=== PATIENT | male | born 1945 | race Caucasian/White ===

== ENCOUNTER 2018-04-17 13:36 | Day surgery (SDC) | payer MEDICARE, SELFPAY ==
[2018-04-12 09:00] VITALS: BP 132/83; PULSE 67; RESP 18; TEMP 36.3; O2SAT 95; BMI 41.4
[2018-04-12 09:33] LABS: Absolute Neutrophil Count 3.8 X10^3/uL (2.0-7.7); Basophil# 0.01 X10^3/uL; Basophil% 0.1 % (0-1); Eosinophil# 0.11 X10^3/uL; Eosinophils% 1.5 % (0-5); Hematocrit 48.3 % (40-54); Hemoglobin 16.5 g/dl (13.0-16.5); Lymphocyte % 34.4 % (19-41); Mean Corp Hgb Conc 34.2 g/gl (32-36); Mean Corpuscular Hgb 32.8 pg (27.0-32.0); Mean Platelet Vol. 10.1 fl (6.2-12.0); Monocyte# 0.77 X10^3/uL; Monocyte% 10.6 % (0-10); Neutrophil % 52.4 % (47-70); Platelet Count 200 K/mm3 (150-450); RBC Distribution Width CV 13.1 % (11.6-14.6); RBC Distribution Width SD 46.2 fl (35.1-43.9); Red Blood Count 5.03 M/mm3 (4.6-6.2); White Blood Count 7.3 K/mm3 (4.4-11.0)
[2018-04-12 09:34] LABS: POSITIVE COUNT NO; POSITIVE DIFFERENTIAL NO; POSITIVE MORPHOLOGY NO
[2018-04-12 10:08] LABS: Anion Gap 7 (5-15); BUN 21 mg/dL (7-18); BUN/Creat Ratio 17.6 RATIO (10-20); Calcium,Total 8.4 mg/dL (8.5-10.1); Chloride 104 mmol/L (98-107); Creatinine, Serum 1.19 mg/dL (0.70-1.30); EST Glomerular Filtration Rate 64 mL/min (>60); Est Glom Filt Rate - Afr Amer 77 mL/min (>60); Estimated Creatinine Clearance 55.08 ml/min; Glucose 115 mg/dL (74-106); Potassium 4.5 mmol/L (3.5-5.1); Sodium Level 140 mmol/L (136-145)
[2018-04-17] VITALS (8 sets, daily range): BP systolic 120–160; BP diastolic 73–89; PULSE 68–88; RESP 16–18; TEMP 36.1–36.7; O2SAT 93–96; BMI 41.4
[2018-04-17] MEDS: Cefazolin 2 GM in 0.9% Normal Saline 100 ML IV (15:24)
--- NOTE | 2018-04-17 15:31 | PCM.DC.URO ---
Discharge Diet: No Restrictions Discharge Activity: Return to Normal Activity, May Not Drive - for 2 days. Additional Activity Instructions:: f you have a catheter, remove on ___. If you have any problems after catheter is removed, call [phone] and ask for your doctor to be paged. Please be aware that pain medications may cause nausea. You should typically eat light foods as you take your pain medication. Pain medication may cause constipation, if this is a problem for you, please discuss with your doctor. Allergies/Adverse Reactions: Allergies morphine Allergy (Verified 04/12/18 08:48) Hives Medications to take at Discharge Cyclobenzaprine [Flexeril] 10 mg PO TID 11/16/15 Tamsulosin HCl [Flomax] 0.4 mg PO DAILY 11/16/15 Gabapentin [Neurontin] 100 mg PO DAILY 09/15/16 buPROPion tablets [Wellbutrin tablets] 150 mg PO DAILY 09/15/16 Aspirin 325 mg PO BID@0800,1700 #30 tablet 09/20/16 traMADol [Ultram] 50 mg PO DAILY 04/12/18 Primary Care Physician: Ruel Seaman MD [Primary Care Provider] - Test Results: Test results from this visit will be discussed in further detail at your follow-up appointment, if applicable. Please Follow Up With: Momo Glaser MD When: in 2 weeks, please call to make an appointment.
--- NOTE | 2018-04-17 15:52 | PCM.OPRPT ---
Report of Operation Date of Procedure: 04/17/18 Pre-Operative Diagnosis: Bladder tumor Post-Operative Diagnosis: Same Surgery/Procedure Performed:: Transurethral resection of bladder tumor Description of Surgical Findings:: 73-year-old male taken back to the operating room after smooth induction of anesthesia he was placed in dorsal lithotomy position. The penis testicles are prepped and draped in usual sterile fashion. I went into the bladder with a 21 Fijian rigid cyst cystourethroscope identified a tumor coming off the lateral wall of the bladder on the on the left patient's left side, the tumor was about 1 cm in size and papillary nature. We then switch over to the Olympus resectoscope using the loop I then resected the base of the tumor and this was a complete resection once white, then the tumor was handed off as specimen to the nurse the bladder was drained and then I instilled 40 cc of mitomycin-C mitomycin-C into the bladder. Patient anesthetic is currently being reversed plan to have him go to the PACU and then he will follow-up in the office in a few weeks to review the tissue report we can probably then plan for procedure for his prostate for BPH and obstruction. Type of Anesthesia:: General Specimen's removed: bladder tumor Drains: none - Admit VTE Documentation VTE Present on Admission: No VTE Mechan Device Prophylaxis: SCD's VTE Pharm Prophylaxis ordered?: No
--- NOTE | 2018-04-18 | BLB_PTH ---
PATIENT: EMMETT BROWNLEE LOC: [facility] – [place] U#:[id number] AGE/SX: 73/M ROOM: RE04/17/[address]: Dr. Momo Glaser MD : 1945 BED: DIS: 04/17/2018 SPEC #: [id number] RECD: 04/18/18 11:55 STATUS: ISIAH REGerri #: [id number] NIKKI: 04/18/18 00:[address]: Momo Glaser DEPT: SURGICAL PATHOLOGY RECD BY: Emiliano Reed ENTERED: 04/18/18 11:56 SP TYPE: TURB OTHR DR: Dr. Ruel Seaman MD Tissues: Urinary bladder, NOS Procedures: Surgery Specimen Level V HEADER OPERATION: Cysto, TUR bladder tumor, Olympus PRE-OP DIAGNOSIS: Bladder CA TISSUE SUBMITTED: Bladder CA MICROSCOPIC DIAGNOSIS Urinary bladder tumor, TUR: Minimal chronic inflammation. No evidence of malignancy. AM:teodora 04/19/18 COMMENT Detrusor muscle is not represented in the biopsy. MICROSCOPIC DESCRIPTION Slides are reviewed. GROSS DESCRIPTION Received in fixative is one container labeled with the patient's name and designated bladder carcinoma. The specimen consists of one irregular fragment of light kaye soft tissue that measures 0.3 x 0.2 x 0.1 cm. The specimen is totally submitted in one cassette. / SJ:rg 04/18/18 TC:3 CPT: 49726
== END 2018-04-17 18:06 | disposition home or self-care (01) ==
LOC: SDC 13:37 → AC 13:37
PROVIDERS: Anesthesiology; Family Provider Family Medicine; PCP Family Medicine; Visit Provider Urology
PROC: 0TBB8ZZ Excision of Bladder, Via Natural or Artificial Opening Endoscopic (ICD-10-PCS; CPT 52234; principal; 2018-04-17 15:45)
DX: C67.2 Malignant neoplasm of lateral wall of bladder (principal); N40.1 Benign prostatic hyperplasia with lower urinary tract symptoms; N13.8 Other obstructive and reflux uropathy; R35.1 Nocturia; E29.1 Testicular hypofunction; F32.9 Major depressive disorder, single episode, unspecified; Z79.82 Long term (current) use of aspirin; Z79.899 Other long term (current) drug therapy; Z87.891 Personal history of nicotine dependence
CPT/HCPCS: 52234; 80048; 85025; 88307; 93005; J7120; J2405; J3490; J9280

== ENCOUNTER → 2018-04-24 13:13 | Outpatient (CLI) | payer MEDICARE, SELFPAY | PROVIDERS: Family Provider Family Medicine; PCP Family Medicine; Visit Provider Nurse Practitioner Adult Health | DX: R31.9 Hematuria, unspecified (principal) | CPT/HCPCS: 87086; 87088 ==

== ENCOUNTER → 2019-02-26 14:31 | Outpatient (CLI) | payer MEDICARE, SELFPAY ==
[2019-02-26 15:04] LABS: Color, Urine Yellow (Yellow); Glucose, Dipstick Normal (Normal); Ketone-Dipstick Negative (Negative); Leukocyte Esterase-Dipstick Negative /ul (Negative); Nitrite-Dipstick Negative (Negative); Occult Blood-Urine 10 /ul (Negative); Protein-Dipstick Negative (Negative); Specific Gravity, Urine 1.025 (1.002-1.030); Urine Bilirubin Dipstick Negative (Negative); Urine Clarity Clear (Clear); Urine Urobilinogen 1 mg/dl (Normal)
[2019-02-26 15:06] LABS: Absolute Lymphocyte Count 3.13 X10^3/uL (0.83-4.51); Absolute Neutrophil Count 3.7 X10^3/uL (2.0-7.7); Basophil# 0.07 X10^3/uL; Basophil% 0.9 % (0-1); Eosinophil# 0.09 X10^3/uL; Eosinophils% 1.1 % (0-5); Hematocrit 51.2 % (40-54); Hemoglobin 17.5 g/dL (13.0-16.5); Lymphocyte # 3.13 X10^3/ul (4.0); Lymphocyte % 38.5 % (19-41); Mean Corp Hgb Conc 34.2 g/dL (32-36); Mean Corpuscular Hgb 32.7 pg (27.0-32.0); Mean Corpuscular Volume 95.7 fL (80-94); Mean Platelet Vol. 9.9 fl (6.2-12.0); Monocyte# 0.96 X10^3/uL; Monocyte% 11.8 % (0-10); NRBC Flagged by Analyzer 0 % (0-5); Neutrophil # 3.71 X10^3/uL (2.7-7.7); Neutrophil % 45.6 % (47-70); Platelet Count 246 K/mm3 (150-450); RBC Distribution Width CV 12.7 % (11.6-14.6); Red Blood Count 5.35 M/mm3 (4.6-6.2); White Blood Count 8.1 K/mm3 (4.4-11.0)
[2019-02-26 15:47] LABS: ALB/GLOB Ratio 0.8 RATIO (0.9-2.4); AST(SGOT) 40 U/L (15-37); Alanine Aminotransfer ALT/SGPT 63 U/L (16-61); Albumin, Serum 3.5 g/dL (3.2-5.0); Alkaline Phosphatase 79 U/L (45-117); Anion Gap 7 (5-15); BUN 20 mg/dL (7-18); BUN/Creat Ratio 16.9 RATIO (10-20); Chloride 103 mmol/L (98-107); Cholesterol 198 mg/dL (200); Creatinine, Serum 1.18 mg/dL (0.70-1.30); EST Glomerular Filtration Rate 65 mL/min (>60); Est Glom Filt Rate - Afr Amer 78 mL/min (>60); Globulin 4.6 g/dL (2.2-4.2); Glucose 102 mg/dL (74-106); High Density Lipoprotein 28 mg/dL; PSA,Total - Annual Screen 0.91 ng/mL (0.00-4.00); Potassium 4.2 mmol/L (3.5-5.1); Protein, Total 8.1 g/dL (6.4-8.2); Sodium Level 140 mmol/L (136-145); Triglycerides 494 mg/dL
== END ==
PROVIDERS: Family Provider Family Medicine; PCP Family Medicine; Referring Provider Family Medicine; Visit Provider Family Medicine
DX: Z00.00 Encounter for general adult medical examination without abnormal findings (principal); Z12.5 Encounter for screening for malignant neoplasm of prostate; E78.5 Hyperlipidemia, unspecified
CPT/HCPCS: 36415; 80053; 80061; 81002; 84153; 85025; G0103

== ENCOUNTER 2019-05-23 12:16 | Day surgery (SDC) | payer MEDICARE, SELFPAY ==
[2019-05-21 08:12] VITALS: BP 134/88; PULSE 64; RESP 18; TEMP 36.6; O2SAT 97; BMI 43.2
--- NOTE | 2019-05-21 08:33 | SDCEKG_ITS ---
Test Reason : Blood Pressure : / mmHG Vent. Rate : 063 BPM Atrial Rate : 063 BPM P-R Int : 144 ms QRS Dur : 088 ms QT Int : 354 ms P-R-T Axes : 020 -09 058 degrees QTc Int : 362 ms Normal sinus rhythm Normal ECG Confirmed by KAI SONG, SHEKHAR ([id number]), proposal editor JULISA MOTTA ([id number]) on 05/28/2019 9:45:47 A M Referred By: Momo Glaser Confirmed By:PAL QUINN MD
[2019-05-21 08:56] LABS: Hematocrit 49.2 % (40-54); Hemoglobin 16.8 g/dL (13.0-16.5); Mean Corp Hgb Conc 34.1 g/dL (32-36); Mean Corpuscular Hgb 32.6 pg (27.0-32.0); Mean Corpuscular Volume 95.3 fL (80-94); Platelet Count 202 K/mm3 (150-450); RBC Distribution Width CV 13.2 % (11.6-14.6); RBC Distribution Width SD 46.6 fl (35.1-43.9); Red Blood Count 5.16 M/mm3 (4.6-6.2)
[2019-05-21 09:19] LABS: Anion Gap 4 (5-15); BUN 24 mg/dL (7-18); Calcium,Total 8.7 mg/dL (8.5-10.1); Chloride 106 mmol/L (98-107); EST Glomerular Filtration Rate 63 mL/min (>60); Est Glom Filt Rate - Afr Amer 77 mL/min (>60); Estimated Creatinine Clearance 53.83 ml/min; Glucose 111 mg/dL (74-106); Potassium 4.6 mmol/L (3.5-5.1); Sodium Level 138 mmol/L (136-145)
[2019-05-23] VITALS (12 sets, daily range): BP systolic 121–154; BP diastolic 67–98; PULSE 64–81; RESP 16–18; TEMP 36.1–36.8; O2SAT 93–100; BMI 43.2
[2019-05-23] MEDS: Lactated Ringers 1,000 ML 100 ML IV ×2 (13:10→15:42)
--- NOTE | 2019-05-23 13:12 | DCINST_ITS ---
Discharge Diet: Light diet - advance as tolerated Discharge Activity: Return to Normal Activity Call your doctor if your incision/area has: Continuous Slow Oozing, Sudden Increased Bleeding, Increased Pain/ Swelling, Increased Redness, Foul Smelling Discharge, Swelling at the incision site Suture Line Care: Avoid Pulling/Pushing, Avoid Pinching/Bending Instructions: Transurethral Resection of the Prostate (TURP): Home Recovery Allergies/Adverse Reactions: Allergies morphine Allergy (Verified 05/23/19 12:48) Hives Medications to take at Discharge cycloBENZAPRine HCl [Flexeril] 10 mg PO TID PRN 11/16/15 traMADol [Ultram] 50 mg PO DAILY 04/12/18 Ciprofloxacin [Cipro] 500 mg PO BID #10 tab 05/23/19 The following prescriptions were given: Ciprofloxacin [Cipro] 500 mg PO BID #10 tab Prescription Printed Primary Care Physician: Ruel Seaman MD [Primary Care Provider] - Test Results: Test results from this visit will be discussed in further detail at your follow- up appointment, if applicable. Please Follow Up With: Momo Glaser MD When: in 2 weeks, please call to make an appointment.
[2019-05-23] MEDS: Cefazolin 2 GM in 0.9% Normal Saline 100 ML IV (13:23)
--- NOTE | 2019-05-23 14:10 | PROS_PTH ---
PATIENT: EMMETT BROWNLEE LOC: [facility] U#:[id number] AGE/SX: 74/M ROOM: RE05/23/[address]: Dr. Momo Glaser MD : 1945 BED: DIS: 05/24/2019 SPEC #: [id number] RECD: 05/23/19 15:16 STATUS: ISIAH REGerri #: [id number] NIKKI: 05/23/19 14:[address]: Momo Glaser DEPT: SURGICAL PATHOLOGY RECD BY: Nino Montero ENTERED: 05/26/19 09:29 SP TYPE: TURP OTHR DR: Dr. Ruel Seaman MD Tissues: Prostate, NOS Procedures: Surgery Specimen Level IV HEADER OPERATION: Cysto, TUR, prostate Olympus PRE-OP DIAGNOSIS: BPH with obstruction TISSUE SUBMITTED: Prostate chips MICROSCOPIC DIAGNOSIS Prostate chips, TUR: Benign prostatic hyperplasia, glandular and stromal type. Focal mild chronic inflammation. SJ:teodora 05/27/19 MICROSCOPIC DESCRIPTION Slides are reviewed. GROSS DESCRIPTION Received is one container labeled with the patient's name and designated prostate chips. The specimen consists of multiple irregular fragments of pink-kaye, rubbery, soft tissue that in aggregate weigh 4.5 gm and measure in aggregate 4 x 4 x 1 cm. The entire specimen is submitted in five cassettes. DILIA:teodora 05/26/19 TC:5 CPT: 89802
--- NOTE | 2019-05-23 14:28 | PCM.OPRPT ---
Report of Operation Date of Procedure: 05/23/19 Pre-Operative Diagnosis: BPH with obstruction Post-Operative Diagnosis: Same Surgery/Procedure Performed:: Transurethral resection of prostate Description of Surgical Findings:: 74-year-old male taken back to the operating room at the smooth induction of general anesthesia he was placed in dorsolithotomy position the penis and testicles are prepped and draped in usual sterile fashion I first went into the penis with a 19 Arabic rigid cystourethroscope to evaluate the anatomy he had a normal urethral channel normal pendulous urethra normal bulbar urethra sphincter was intact verumontanum was identified he had obstructive prostate tissue short length from the verumontanum to the bladder neck identified the right and left ureteral orifice I then switched over to the bipolar resectoscope and then a resection of the prostate resected the floor right lobe of the prostate the left low the prostate as I resected also remove the UroLift clips, removed all the clips did a complete resection had a nice wide open channel did a flow test had a great wide open flow, look back in sphincter was intact had nice tissue right to the verumontanum no resection past the verumontanum good sphincter control and at the end of the resection I did a flow test nice flow but a catheter into the bladder on three-way irrigation and the patient was taken back to PACU in good condition after anesthesia was reversed. Type of Anesthesia:: General Drains: 3 way roa - Admit VTE Documentation VTE Present on Admission: No VTE Mechan Device Prophylaxis: SCD's
[2019-05-23] MEDS: 0.9% Normal Saline 1,000 ML 75 ML IV (17:26)
[2019-05-23] MEDS: HYDROcodone Bitartrate/Apap 5/325 Tablet PO (17:37)
[2019-05-23] MEDS: oxyCODONE 5 MG Tablet PO (19:39)
[2019-05-23] MEDS: Ketorolac 30 MG/ML Syringe IV (20:01)
[2019-05-23] MEDS: Docusate Sodium 100 MG Capsule PO (22:45)
[2019-05-23] MEDS: Ciprofloxacin 500 MG Tablet PO (22:45)
[2019-05-24] MEDS: Ibuprofen 600 MG Tablet PO (01:01)
[2019-05-24] MEDS: oxyCODONE 5 MG Tablet PO (01:21)
[2019-05-24 02:30] VITALS: BP 119/80; PULSE 66; RESP 18; TEMP 36.8; O2SAT 97
[2019-05-24] MEDS: 0.9% Normal Saline 1,000 ML 75 ML IV (05:51)
[2019-05-24 08:05] VITALS: O2SAT 92
[2019-05-24 08:46] VITALS: BP 125/53; PULSE 67; RESP 16; TEMP 36.5; O2SAT 95
[2019-05-24] MEDS: Docusate Sodium 100 MG Capsule PO (08:54)
[2019-05-24] MEDS: Ciprofloxacin 500 MG Tablet PO (08:54)
[2019-05-24] MEDS: Pantoprazole Sodium 40 MG Tablet PO (08:55)
[2019-05-24] MEDS: traMADol 50 MG Tablet PO (08:56)
[2019-05-24 11:13] VITALS: BP 133/68; PULSE 73; RESP 16; TEMP 37.1; O2SAT 93
[2019-05-24 14:31] VITALS: BP 147/79; PULSE 75; RESP 16; TEMP 36.7; O2SAT 97
--- NOTE | 2019-05-24 14:50 | NURSING ---
dr garza notified that pt unable to void. order received to place roa and send pt home with roa. 18g roa placed. education on roa care and leg bag given to pt. pt stated that he understood how to care for rao. pt discharge home
[2019-05-24] MEDS: HYDROcodone Bitartrate/Apap 5/325 Tablet PO (14:56)
== END 2019-05-24 15:53 | disposition home or self-care (01) ==
LOC: SDC 12:17 → AC 12:18 → MS3 05-26 10:18
PROVIDERS: Anesthesiology; Family Provider Family Medicine; PCP Family Medicine; Referring Provider Urology; Visit Provider Urology
PROC: (CPT 52601; principal; 2019-05-23 14:00)
DX: N40.1 Benign prostatic hyperplasia with lower urinary tract symptoms (principal); N13.8 Other obstructive and reflux uropathy; R35.0 Frequency of micturition; R35.1 Nocturia; E29.1 Testicular hypofunction; E78.49 Other hyperlipidemia; Z87.891 Personal history of nicotine dependence
CPT/HCPCS: 00914; 52601; 80048; 85027; 88305; 93005; J7030; J7120; J2405

== ENCOUNTER → 2020-01-26 12:01 | Outpatient (CLI) | payer MEDICARE, SELFPAY ==
[2019-05-23 12:52] VITALS: BMI 43.2
[2020-01-26 12:48] LABS: Absolute Neutrophil Count 3.9 X10^3/uL (2.0-7.7); Basophil# 0.05 X10^3/uL; Basophil% 0.6 % (0-1); Color, Urine Yellow (Yellow); Eosinophil# 0.08 X10^3/uL; Glucose, Dipstick Normal (Normal); Hematocrit 49.9 % (40-54); Hemoglobin 16.8 g/dL (13.0-16.5); Ketone-Dipstick Negative (Negative); Leukocyte Esterase-Dipstick Negative /ul (Negative); Lymphocyte % 35.6 % (19-41); Mean Corp Hgb Conc 33.7 g/dL (32-36); Mean Corpuscular Hgb 33.1 pg (27.0-32.0); Mean Corpuscular Volume 98.2 fL (80-94); Mean Platelet Vol. 10.2 fl (6.2-12.0); Monocyte# 0.85 X10^3/uL; Monocyte% 10.8 % (0-10); NRBC Flagged by Analyzer 0 % (0-5); Neutrophil # 3.94 X10^3/uL (2.7-7.7); Neutrophil % 50.1 % (47-70); Nitrite-Dipstick Negative (Negative); Occult Blood-Urine 10 /ul (Negative); Platelet Count 228 K/mm3 (150-450); Protein-Dipstick Negative (Negative); RBC Distribution Width CV 12.7 % (11.6-14.6); RBC Distribution Width SD 45.9 fl (35.1-43.9); Red Blood Count 5.08 M/mm3 (4.6-6.2); Urine Bilirubin Dipstick Negative (Negative); Urine Clarity Sl. Cloudy (Clear); Urine Urobilinogen Normal (Normal); White Blood Count 7.9 K/mm3 (4.4-11.0)
== END ==
PROVIDERS: PCP Family Medicine; Referring Provider Family Medicine; Visit Provider Family Medicine
DX: Z00.00 Encounter for general adult medical examination without abnormal findings (principal); E78.5 Hyperlipidemia, unspecified; Z12.5 Encounter for screening for malignant neoplasm of prostate
CPT/HCPCS: 36415; 81002; 85025

== ENCOUNTER → 2020-02-02 10:32 | Outpatient (CLI) | payer MEDICARE, SELFPAY ==
[2019-05-23 12:52] VITALS: BMI 43.2
[2020-02-02 11:57] LABS: ALB/GLOB Ratio 0.8 RATIO (0.9-2.4); AST(SGOT) 35 U/L (15-37); Alanine Aminotransfer ALT/SGPT 49 U/L (16-61); Albumin, Serum 3.7 g/dL (3.2-5.0); Alkaline Phosphatase 74 U/L (45-117); Anion Gap 3 (5-15); BUN 24 mg/dL (7-18); Calcium,Total 9.1 mg/dL (8.5-10.1); Chloride 104 mmol/L (98-107); Cholesterol 178 mg/dL (200); EST Glomerular Filtration Rate 63 mL/min (>60); Est Glom Filt Rate - Afr Amer 76 mL/min (>60); Globulin 4.8 g/dL (2.2-4.2); Glucose 100 mg/dL (74-106); High Density Lipoprotein 33 mg/dL; Potassium 4.5 mmol/L (3.5-5.1); Protein, Total 8.5 g/dL (6.4-8.2); Sodium Level 139 mmol/L (136-145); Triglycerides 213 mg/dL; Very Low Density Lipoprotein 43 mg/dL (5-40)
== END ==
PROVIDERS: PCP Family Medicine; Visit Provider Family Medicine
DX: Z00.00 Encounter for general adult medical examination without abnormal findings (principal); E78.5 Hyperlipidemia, unspecified; Z12.5 Encounter for screening for malignant neoplasm of prostate
CPT/HCPCS: 80053; 80061

== ENCOUNTER 2020-09-20 15:00 | Outpatient (RCR) | payer MEDICARE, SELFPAY ==
[2019-05-23 12:52] VITALS: BMI 43.2
--- NOTE | 2020-09-14 16:05 | HP.PTEVAL ---
Patient's Visit Information EMMETT BROWNLEE is a 75 year old M referred to Physical Therapy by Dr. Ruel Seaman MD with a diagnosis of vertigo. Date of Evaluation: 09/14/20 Physical Therapist: Mehdi Licea DPT, OCS, CSCS - Visit Plan Frequency: 1-2x /Week Duration: 2-4 Weeks Plan: 1-2x/weeklya s needed for positional treatments for BPPV and return to function if needed. - Subjective Got vertigo 10 days ago out of nowhere as he woke up with it. Lying down is worst or rolling over and he spins bad. Lasts about 15 seconds. In between feels oK unless he gets up too quick or bends over. Once he is up, he is typically OK. Always feels a little nauseous but spinning only with head movement. Had this one time 10 years ago adn fixed quick. Gets ARAUJO or neck pain if it comes on. Avoids going out to barn and taking care of animals and riding tractor. Balance is effected when dizzyness is present. Sleeps OK unless he rolls. - Objective Walks well and trasnfers easily with good balance. Cervical AROM WFL adn without pain. - L hallpike davina. + R roll test treated with BBQ roll, then + R HD treated with Taz. Walked well out of therapy safe and I. - Balance Scores Functional Gait Assessment Score: 27 % Disability: 10.0000 - Goals Goal 1:: abolish dizzyness with bedning adn lying/rolling Goal Time Frame: 2-4 Weeks Goal 2:: Pt feel 100% back to normal with activit Goal Time Frame: 2-4 Weeks - Rehabilitation Potential Physical Therapy Diagnosis: BPPV Rehabilitation Potential: Fair - Anticipated Interventions Patient/Client Instruction: Educate patient on: Condition, Plan of Care For the Purpose of:: To increase tolerance to activity/condition/position Comment: positional For the Purpose of:: To increase tolerance to activity/condition/position Thank you for the opportunity to evaluate your patient. For Medicare and Medicare HMO plans, please review the plan of care and approve it. It will need to be FAXED BACK to us at [phone] for Medicare purposes. For Medicare only, by signing this I certify the plan of care. Please let me know if there are questions or concerns regarding this plan of care. Physician Signature: Date:
--- NOTE | 2020-12-01 10:07 | HP.PT.NRP ---
EMMETT BROWNLEE was seen in my office for initial evaluation on 09/14/20. The following Plan of Care was established for this patient: Initial Frequency: 1-2x /Week Initial Duration: 2-4 Weeks Patient/Client Instruction: Educate patient on: Condition, Plan of Care For the Purpose of:: To increase tolerance to activity/condition/position For the Purpose of:: To increase tolerance to activity/condition/position This patient was last seen in our office 09/20/20. Pertinent comments regarding their Physical therapy will appear below: Pt seen 3 visits of POC over 6 days. He neglected to schedule or attend any further visits. at this point, it has been over two months and I will discontinue due to nonattendance. At this point I will be discontinuing this patient from physical therapy. I would be happy to see this patient again in the future if found appropriate by the physician. Thank you! Mehdi Licea, DPT, OCS, CSCS
== END 2020-09-20 19:00 | disposition home or self-care (01) ==
LOC: PT 15:00
PROVIDERS: PCP Family Medicine; Referring Provider Family Medicine; Visit Provider Family Medicine
DX: R42 Dizziness and giddiness (principal)
CPT/HCPCS: 97161; 97530

== ENCOUNTER 2020-09-28 11:12 | Emergency (ER) | payer MEDICARE, SELFPAY ==
[2019-05-23 12:52] VITALS: BMI 43.2
[2020-09-28 11:13] VITALS: BP 150/105; PULSE 95; RESP 17; TEMP 35.6; O2SAT 92; BMI 40.4
--- NOTE | 2020-09-28 11:34 | CT_ITS ---
STUDY: CT ABDOMEN AND PELVIS WITHOUT CONTRAST REASON FOR EXAM: Male, 75 years old. LLQ PAIN X 1 WK, HX-KS, SURG-BACK SURGERY,6 FOOT BOWEL REMOVED D/T TRAUMA, APPY, ANNETTE, HERNIA REPAIR RADIATION DOSAGE (If Supplied By Facility): CTDIvol = ( 30.34 ) mGy, DLP = ( 1743.61 ) mGycm TECHNIQUE: Transaxial images were obtained from the dome of the diaphragm to the symphysis pubis without oral contrast, and without intravenous contrast. Sagittal and coronal images were reconstructed. Individualized dose optimization techniques were used for this CT. COMPARISON: None. FINDINGS: Minimal increased linear markings at the lung bases suggestive of either linear atelectasis and/or scarring. Coronary artery calcification. Normal liver. There are surgical clips in the gallbladder fossa consistent with a prior cholecystectomy. Normal spleen. Normal pancreas. Normal bilateral adrenal glands. Nonspecific right perinephric stranding. There is a 2 cm cyst in the upper medial aspect of the right kidney. Nonspecific left perinephric stranding. Left renal cysts. The largest measures 3.1 cm and lies along the anterior lateral aspect of the lower pole of the left kidney. Normal visualized stomach. Normal small intestine. There is diverticulosis, with thickening of the sigmoid colon wall, and pericolonic inflammation changes consistent with acute diverticulitis. The patient is status post appendectomy. There is diffuse atherosclerotic calcification of the abdominal aorta and its major visceral branches. There is evidence of a saccular infrarenal abdominal aortic aneurysm with a transverse dimension of 4.2 cm.Normal inferior vena cava. Normal retroperitoneum. Normal urinary bladder. There are prostatic calcifications. Small bilateral inguinal hernias containing fat. There are diffuse degenerative changes of the visualized lumbar spine. CT/Abdomen/Pelvis without Cont IMPRESSION: Sigmoid diverticulosis with wall thickening and increased markings in the surrounding mesenteric fat in keeping with noncomplicated acute sigmoid diverticulitis. Bilateral renal cysts. Infrarenal abdominal aortic aneurysm. Electronically Signed: Jeff Warner MD at 13:11 EST , Service support ,
--- NOTE | 2020-09-28 11:35 | ED.VISSUMM ---
- ER Visit Summary Date of Service: 09/28/20 Chief Complaint: Left lower quadrant abdominal pain and left flank pain History of Present Illness: The patient is a 75 M who presents with left lower quadrant and left flank pain. Patient states this began approximately 1 week ago. Patient states it is a constant dull pain that is burning with urination. Patient states the pain is mainly in the left lower quadrant but radiates into his left flank area. Patient denies any hematuria. Patient denies any nausea or vomiting. Patient denies any fevers or chills. Patient states nothing has been helping with the pain. Patient states he has a history of benign prostatic hypertrophy. Physical Examination: Vital signs are stable except for mildly elevated blood pressure 150/105. Patient is afebrile. Patient is in no acute distress. Oral mucosa is pink and moist. Neck is supple. Trachea is midline. There is no JVD. Heart was regular rate and rhythm. Lungs are clear and equal bilaterally. Abdomen is soft. Bowel sounds are normal. There is left lower quadrant and left CVA tenderness. There is no rebound. There is no guarding. Cranial nerves II through XII are intact. There are no focal motor or sensory deficits noted. Extremities are intact. There is no calf tenderness or edema. Test Results: CBC was within normal limits. Comprehensive metabolic profile showed a slightly elevated creatinine of 1.31. This is consistent with prior results. Urinalysis showed leukocyte esterase of 100 with 10-[address] scan of the abdomen pelvis was obtained. There is evidence of diverticulitis but no perforation or abscess. This was interpreted by the radiologist and reviewed by myself. Emergency Department Course and Treatment: Patient was given his first dose of Cipro and Flagyl here. Patient was given prescriptions for Cipro and Flagyl. Patient was instructed to avoid alcohol. Patient was instructed to follow-up with his primary care physician in 5 to 7 days. Patient understood and was agreeable with the plan. All questions were answered. Disposition: Discharge home Impression: 1. Diverticulitis This note was generated with [employer] software. It may contain incorrect words, spelling, and punctuation that were not noted in review of the chart prior to signing ED Disposition - Plan for ED Patient: Disposition: Home or Assisted Living Diagnosis: Diverticulitis Instructions: ED Diverticulitis Prescriptions: Ciprofloxacin [Cipro] 500 mg PO BID #20 tab Transmission Status: Pending to [facility]/pharmacy #[id number] metroNIDAZOLE [Flagyl] 500 mg PO Q6H #40 tab Transmission Status: Pending to [facility]/pharmacy #[id number] Referrals: Ruel Seaman MD [Primary Care Provider] - 5-7 Days
[2020-09-28 11:45] LABS: Color, Urine Yellow (Yellow); Glucose, Dipstick Normal (Normal); Ketone-Dipstick 5 mg/dl (Negative); Leukocyte Esterase-Dipstick 100 /ul (Negative); Nitrite-Dipstick Negative (Negative); Occult Blood-Urine 10 /ul (Negative); Protein-Dipstick 30 mg/dl (Negative); Urine Bilirubin Dipstick Negative (Negative); Urine Clarity Sl. Cloudy (Clear); Urine Urobilinogen 1 mg/dl (Normal)
[2020-09-28 11:55] LABS: Bacteria 1+ /hpf (None Seen); Mucous, Urine 1+ /hpf (<or=2+); Red Blood Cells-Urine 0-5 SEEN /hpf (0-5); Squamous Epithelial Cells - UA 0-5 SEEN /hpf (0-5); White Blood Cells 10-25 SEEN /hpf (0-5)
[2020-09-28 12:14] LABS: Absolute Lymphocyte Count 2.69 X10^3/uL (0.83-4.51); Absolute Neutrophil Count 5.9 X10^3/uL (2.0-7.7); Basophil# 0.09 X10^3/uL; Basophil% 0.9 % (0-1); Eosinophil# 0.07 X10^3/uL; Eosinophils% 0.7 % (0-5); Hematocrit 50.8 % (40-54); Hemoglobin 17.2 g/dL (13.0-16.5); Lymphocyte # 2.69 X10^3/ul (4.0); Lymphocyte % 26.2 % (19-41); Mean Corp Hgb Conc 33.9 g/dL (32-36); Mean Corpuscular Volume 94.6 fL (80-94); Mean Platelet Vol. 9.6 fl (6.2-12.0); Monocyte# 1.12 X10^3/uL; Monocyte% 10.9 % (0-10); NRBC Flagged by Analyzer 0 % (0-5); Neutrophil # 5.88 X10^3/uL (2.7-7.7); Neutrophil % 57.2 % (47-70); Platelet Count 344 K/mm3 (150-450); RBC Distribution Width CV 12.6 % (11.6-14.6); RBC Distribution Width SD 44.4 fl (35.1-43.9); Red Blood Count 5.37 M/mm3 (4.6-6.2); White Blood Count 10.3 K/mm3 (4.4-11.0)
[2020-09-28 12:38] LABS: ALB/GLOB Ratio 0.6 RATIO (0.9-2.4); AST(SGOT) 32 U/L (15-37); Alanine Aminotransfer ALT/SGPT 32 U/L (16-61); Albumin, Serum 3.4 g/dL (3.2-5.0); Alkaline Phosphatase 79 U/L (45-117); Anion Gap 1 (5-15); BUN 20 mg/dL (7-18); BUN/Creat Ratio 15.3 RATIO (10-20); Calcium,Total 9.2 mg/dL (8.5-10.1); Chloride 103 mmol/L (98-107); Creatinine, Serum 1.31 mg/dL (0.70-1.30); EST Glomerular Filtration Rate 57 mL/min (>60); Est Glom Filt Rate - Afr Amer 69 mL/min (>60); Estimated Creatinine Clearance 50.22 ml/min; Globulin 5.5 g/dL (2.2-4.2); Glucose 126 mg/dL (74-106); Lipase 127 U/L (73-393); Potassium 4.6 mmol/L (3.5-5.1); Protein, Total 8.9 g/dL (6.4-8.2); Sodium Level 136 mmol/L (136-145)
[2020-09-28] MEDS: Ciprofloxacin 500 MG Tablet PO (14:53)
[2020-09-28] MEDS: metroNIDAZOLE 500 MG Tablet PO (14:53)
[2020-09-28 14:55] VITALS: BP 148/74; PULSE 71; RESP 16; O2SAT 96
== END 2020-09-28 15:08 | disposition home or self-care (01) ==
PROVIDERS: Emergency Provider Emergency Medicine; PCP Family Medicine
DX: K57.32 Diverticulitis of large intestine without perforation or abscess without bleeding (principal); N40.0 Benign prostatic hyperplasia without lower urinary tract symptoms
CPT/HCPCS: 74176; 80053; 81001; 83690; 85025; 99285; A4216

== ENCOUNTER 2021-03-24 16:00 | Outpatient (RCR) | payer MEDICARE, SELFPAY ==
--- NOTE | 2021-03-24 16:21 | HP.PTEVAL ---
Patient's Visit Information EMMETT BROWNLEE is a 76 year old M referred to Physical Therapy by Dr. Ruel Seaman MD with a diagnosis of vertigo. Date of Evaluation: 03/24/21 Physical Therapist: Mehdi Licea DPT, OCS, CSCS - Visit Plan Frequency: 1x/Week Duration: 2-4 Weeks Plan: weekly as needed for positional treatments/ex for R BPPV. - Subjective Been getting dizzy. Had adjustments 7 months ago and it helped for about 7 months. Vertigo came back a week ago getting in and out of bed with spinning for a minute or so. Bending over can also cause it. Feels normal in between episodes. Balance feels good when not spinning. Activities are normal except care when get in out bed or bending. Has to limit housework with up down head movement. Sleep is OK form dizzy point of view. Not employed. Basic ADLs going OK. - Objective Walks I and safe with good balance. cervical aROM WFL and without pain, functional. - L hallpike davina. + R hallpike davina up torsional 8 seconds, treated with Taz x 2 then - HD. - Balance/Special Test Scores Functional Gait Assessment Score: 28 % Disability: 6.6700 Dizziness Score: 48 - Goals Goal 1:: abolish dizzyness Goal Time Frame: 4-6 Weeks Goal 2:: sleep on R side without spinning Goal Time Frame: 4-6 Weeks Goal 3:: DHI <5 Goal Time Frame: 2-4 Weeks - Rehabilitation Potential Physical Therapy Diagnosis: BPPV R post canal Rehabilitation Potential: Good - Anticipated Interventions Patient/Client Instruction: Educate patient on: Condition, Plan of Care For the Purpose of:: To increase tolerance to activity/condition/position Comment: postional ex/treat. For the Purpose of:: To increase tolerance to activity/condition/position Thank you for the opportunity to evaluate your patient. For Medicare and Medicare HMO plans, please review the plan of care and approve it. It will need to be FAXED BACK to us at [phone] for Medicare purposes. For Medicare only, by signing this I certify the plan of care. Please let me know if there are questions or concerns regarding this plan of care. Physician Signature: Date:
--- NOTE | 2021-05-26 10:04 | HP.PT.NRP ---
EMMETT BROWNLEE was seen in my office for initial evaluation on 03/24/21. The following Plan of Care was established for this patient: Initial Frequency: 1x/Week Initial Duration: 2-4 Weeks Patient/Client Instruction: Educate patient on: Condition, Plan of Care For the Purpose of:: To increase tolerance to activity/condition/position For the Purpose of:: To increase tolerance to activity/condition/position This patient was last seen in our office 03/24/21. Pertinent comments regarding their Physical therapy will appear below: Pt seen intiial evalution and treated with positional treatment. he was to f/u per POC but cancelled and did not attend any further visits. At this point, it has been over two months and I will disocntinue due to nonattendance. At this point I will be discontinuing this patient from physical therapy. I would be happy to see this patient again in the future if found appropriate by the physician. Thank you! Mehdi Licea, DPT, OCS, CSCS Balance/Gait/Functional tests - Balance/Special Test Scores Functional Gait Assessment Score: 28 % Disability: 6.6700 Dizziness Score: 48
== END 2021-03-24 19:00 | disposition home or self-care (01) ==
LOC: PT 16:00
PROVIDERS: PCP Family Medicine; Referring Provider Family Medicine; Visit Provider Family Medicine
DX: R42 Dizziness and giddiness (principal)
CPT/HCPCS: 97161

== ENCOUNTER → 2021-07-19 12:09 | Outpatient (CLI) | payer MEDICARE, SELFPAY ==
[2021-07-19 12:33] LABS: Absolute Lymphocyte Count 2.97 X10^3/uL (0.83-4.51); Absolute Neutrophil Count 3.4 X10^3/uL (2.0-7.7); Basophil# 0.07 X10^3/uL; Basophil% 0.9 % (0-1); Eosinophil# 0.06 X10^3/uL; Eosinophils% 0.8 % (0-5); Hematocrit 49.8 % (40-54); Hemoglobin 16.9 g/dL (13.0-16.5); Lymphocyte # 2.97 X10^3/ul (0.83-4.51); Lymphocyte % 39.6 % (19-41); Mean Corp Hgb Conc 33.9 g/dL (32-36); Mean Corpuscular Hgb 32.4 pg (27.0-32.0); Mean Corpuscular Volume 95.6 fL (80-94); Monocyte# 0.84 X10^3/uL; Monocyte% 11.2 % (0-10); NRBC Flagged by Analyzer 0 % (0-5); Neutrophil # 3.42 X10^3/uL (2.7-7.7); Neutrophil % 45.6 % (47-70); Platelet Count 223 K/mm3 (150-450); RBC Distribution Width CV 12.9 % (11.6-14.6); RBC Distribution Width SD 45.7 fl (35.1-43.9); Red Blood Count 5.21 M/mm3 (4.6-6.2); White Blood Count 7.5 K/mm3 (4.4-11.0)
[2021-07-19 13:34] LABS: ALB/GLOB Ratio 0.8 RATIO (0.9-2.4); AST(SGOT) 45 U/L (15-37); Alanine Aminotransfer ALT/SGPT 32 U/L (16-61); Albumin, Serum 3.7 g/dL (3.2-5.0); Alkaline Phosphatase 71 U/L (45-117); Anion Gap 7 (5-15); BUN 15 mg/dL (7-18); BUN/Creat Ratio 12.7 RATIO (10-20); Calcium,Total 8.8 mg/dL (8.5-10.1); Chloride 104 mmol/L (98-107); Cholesterol 160 mg/dL (200); Creatinine, Serum 1.18 mg/dL (0.70-1.30); EST Glomerular Filtration Rate 64 mL/min (>60); Est Glom Filt Rate - Afr Amer 78 mL/min (>60); Globulin 4.6 g/dL (2.2-4.2); Glucose 90 mg/dL (74-106); High Density Lipoprotein 35 mg/dL; PSA,Total - Annual Screen 0.93 ng/mL (0.00-4.00); Protein, Total 8.3 g/dL (6.4-8.2); Sodium Level 137 mmol/L (136-145); Triglycerides 206 mg/dL; Very Low Density Lipoprotein 41 mg/dL (5-40)
== END ==
PROVIDERS: PCP Family Medicine; Referring Provider Family Medicine; Visit Provider Family Medicine
DX: Z00.00 Encounter for general adult medical examination without abnormal findings (principal); E78.5 Hyperlipidemia, unspecified; Z12.5 Encounter for screening for malignant neoplasm of prostate
CPT/HCPCS: 36415; 80053; 80061; 84153; 85025; G0103

== ENCOUNTER 2022-06-02 14:30 | Outpatient (RCR) | payer MEDICARE, SELFPAY ==
--- NOTE | 2022-05-23 15:22 | HP.PTEVAL_ITS ---
Patient's Visit Information EMMETT BROWNLEE is a 77 year old M referred to Physical Therapy by Dr. Ruel Seaman MD with a diagnosis of Vertigo. Date of Evaluation: 05/23/22 Physical Therapist: Mehdi Licea DPT, OCS, CSCS - Visit Plan Frequency: 1-2x /Week Duration: 2-4 Weeks Plan: 1-2x/week as needed x 2-4 for positional treatments and management of condition. - Subjective Dizzyness described as spinning. Present for 6 weeks insidiously. It happens when he looks down or gets up at night or gets into bed and it does not last long. 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 Has to turn slowly. Sleep is not great but that is normal for him. Will go to [facility] for winter. No falls, just LOB when dizzy. - Objective Walks slowly into PT I, trasnfers I bed and chair. cervical AROM WFL and without pain, hesitant to look up. Balance appears good. - R hallpike davina. + L hallpike davina for up torsional nystagmus 7 seconds, treated with Taz and then - test. - Balance/Special Test Scores Functional Gait Assessment Score: 28 % Disability: 6.6700 Dizziness Score: 52 - Goals Goal 1:: abolish dizzyness Goal Time Frame: 2-4 Weeks Goal 2:: DHI score 10 or less Goal Time Frame: 2-4 Weeks - Rehabilitation Potential Physical Therapy Diagnosis: BPPV L PC Rehabilitation Potential: Good - Anticipated Interventions Patient/Client Instruction: Educate patient on: Condition, Plan of Care For the Purpose of:: To increase tolerance to activity/condition/position Comment: positional ex and treatments For the Purpose of:: To increase tolerance to activity/condition/position Thank you for the opportunity to evaluate your patient. For Medicare and Medicare HMO plans, please review the plan of care and approve it. It will need to be FAXED BACK to us at [phone] for Medicare purposes. For Medicare only, by signing this I certify the plan of care. Please let me know if there are questions or concerns regarding this plan of care. Physician Signature: Date:
--- NOTE | 2022-07-24 08:02 | HP.PT.NRP ---
EMMETT BROWNLEE was seen in my office for initial evaluation on 05/23/22. The following Plan of Care was established for this patient: Initial Frequency: 1-2x /Week Initial Duration: 2-4 Weeks Patient/Client Instruction: Educate patient on: Condition, Plan of Care For the Purpose of:: To increase tolerance to activity/condition/position For the Purpose of:: To increase tolerance to activity/condition/position This patient was last seen in our office 06/02/22. Pertinent comments regarding their Physical therapy will appear below: Pt seen two visits of POC and was 50% better. Was to continue POC but did not schedule or attend. at this point, it has been over 6 weeks and I will discontinue due to nonattendance. At this point I will be discontinuing this patient from physical therapy. I would be happy to see this patient again in the future if found appropriate by the physician. Thank you! Mehdi Licea, DPT, OCS, CSCS Balance/Gait/Functional tests - Balance/Special Test Scores Functional Gait Assessment Score: 28 % Disability: 6.6700 Dizziness Score: 52
== END 2022-06-02 19:00 | disposition home or self-care (01) ==
LOC: PT 14:30
PROVIDERS: PCP Family Medicine; Referring Provider Family Medicine; Visit Provider Family Medicine
DX: R42 Dizziness and giddiness (principal)
CPT/HCPCS: 97161; 97530

== ENCOUNTER → 2022-07-15 | Outpatient (CLI) | payer MEDICARE, SELFPAY | END | disposition home or self-care (01) | LOC: LABSPEC 09:46 | PROVIDERS: PCP Internal Medicine; Visit Provider Internal Medicine | DX: R19.7 Diarrhea, unspecified (principal); K58.9 Irritable bowel syndrome, unspecified | CPT/HCPCS: 83630; 87493; 87506 ==

== ENCOUNTER → 2022-07-18 | Outpatient (CLI) | payer MEDICARE, SELFPAY ==
[2022-07-18 13:11] LABS: Absolute Lymphocyte Count 2.71 X10^3/uL (0.83-4.51); Absolute Neutrophil Count 4.7 X10^3/uL (2.0-7.7); Basophil# 0.04 X10^3/uL; Basophil% 0.5 % (0-1); Eosinophil# 0.06 X10^3/uL; Eosinophils% 0.7 % (0-5); Hemoglobin 17.1 g/dL (13.0-16.5); Lymphocyte # 2.71 X10^3/ul (0.83-4.51); Lymphocyte % 31.7 % (19-41); Mean Corp Hgb Conc 34.9 g/dL (32-36); Mean Corpuscular Hgb 33.5 pg (27.0-32.0); Mean Corpuscular Volume 96.1 fL (80-94); Mean Platelet Vol. 10.1 fl (6.2-12.0); Monocyte# 0.89 X10^3/uL; Monocyte% 10.4 % (0-10); NRBC Flagged by Analyzer 0 % (0-5); Neutrophil # 4.73 X10^3/uL (2.7-7.7); Neutrophil % 55.2 % (47-70); Platelet Count 269 K/mm3 (150-450); RBC Distribution Width CV 13.4 % (11.6-14.6); RBC Distribution Width SD 47.8 fl (35.1-43.9); White Blood Count 8.6 K/mm3 (4.4-11.0)
[2022-07-18 13:45] LABS: Vitamin D,25 Hydroxy 15.9 ng/mL
[2022-07-18 13:54] LABS: ALB/GLOB Ratio 0.8 RATIO (0.9-2.4); AST(SGOT) 28 U/L (15-37); Alanine Aminotransfer ALT/SGPT 33 U/L (16-61); Albumin, Serum 3.6 g/dL (3.2-5.0); Alkaline Phosphatase 70 U/L (45-117); Anion Gap 6 (5-15); BUN 25 mg/dL (7-18); BUN/Creat Ratio 22.1 RATIO (10-20); Calcium,Total 8.9 mg/dL (8.5-10.1); Chloride 105 mmol/L (98-107); Cholesterol 177 mg/dL (200); Creatinine, Serum 1.13 mg/dL (0.70-1.30); EST Glomerular Filtration Rate 67 mL/min (>60); Est Glom Filt Rate - Afr Amer 81 mL/min (>60); Globulin 4.3 g/dL (2.2-4.2); Glucose 98 mg/dL (74-106); High Density Lipoprotein 31 mg/dL; Potassium 4.4 mmol/L (3.5-5.1); Protein, Total 7.9 g/dL (6.4-8.2); Sodium Level 138 mmol/L (136-145); Thyroid Stim Hormone (TSH) 1.77 uIU/mL (0.358-3.74); Triglycerides 327 mg/dL; Very Low Density Lipoprotein 65 mg/dL (5-40)
== END | disposition home or self-care (01) ==
PROVIDERS: PCP Internal Medicine; Referring Provider Internal Medicine; Visit Provider Internal Medicine
DX: R06.02 Shortness of breath (principal); R19.7 Diarrhea, unspecified; E78.5 Hyperlipidemia, unspecified; E55.9 Vitamin D deficiency, unspecified
CPT/HCPCS: 36415; 80053; 80061; 82306; 84443; 85025

== ENCOUNTER 2023-01-11 09:33 | Day surgery (SDC) | payer MEDICARE, SELFPAY ==
--- NOTE | 2023-01-11 | COLBX_PTH ---
PATIENT: EMMETT BROWNLEE LOC: EN U#:[id number] AGE/SX: 78/M ROOM: RE01/11/[address]: Dr. Glenn Mckinney DO : 1945 BED: DIS: 01/11/2023 SPEC #: [id number] RECD: 01/11/23 14:55 STATUS: ISIAH CASSANDRA #: [id number] NIKKI: 01/11/23 00:[address]: Glenn Mckinney DEPT: SURGICAL PATHOLOGY RECD BY: Emiliano Reed ENTERED: 01/12/23 08:55 SP TYPE: COLON BX PRAVEENA DR: Dr. Joyce Vallejo MD Tissues: A - COLON BIOPSY B - COLON BIOPSY Procedures: Surgery Specimen Level IV HEADER OPERATION: Colonoscopy, biopsy, polypectomy (MAC) PRE-OP DIAGNOSIS: Diarrhea TISSUE SUBMITTED: A ? Polyp hepatic flexure, B ? Random colon biopsy MICROSCOPIC DIAGNOSIS A. Colonic polyp at hepatic flexure, biopsy: Tubular adenoma. B. Colon, random biopsy: No pathologic change. AM:teodora 01/15/2023 MICROSCOPIC DESCRIPTION Slides are reviewed. GROSS DESCRIPTION A - Received in fixative is one container labeled with the patient's name and designated polyp hepatic flexure. The specimen consists of one irregular fragment of light kaye soft tissue that measures 0.3 x 0.2 x 0.1 cm. The specimen is totally submitted in one cassette. B - Received in fixative is one container labeled with the patient's name and designated biopsy random colon. The specimen consists of multiple irregular fragments of light kaye soft tissue that in aggregate measure 1.5 x 0.7 x 0.1 cm. The specimen is totally submitted in one cassette. / SJ:teodora 01/12/2023 TC:5 [facility]: [id number] x2
--- NOTE | 2023-01-11 10:10 | PCM.HP.BLA ---
History and Physical Date of Admission: 01/11/23 77 M who presents to the office today for Colonoscopy for screening 01.23.[address] Astorga noting left colon diverticulosis; TA polyp. PCP OV noting postprandial loose stools has been an issue for many years with some progression in severity and has been limiting his ability to travel and go in public. *[facility] established 11.02.22 with referral from PCP. Reports 15 years prior he had a chainsaw accident where he ultimately lost many inches of his bowel (unspecified amount). Since this accident he has had loose stools of varying degree: some days weeks they are postprandial and extremely urgent causing incontinence. Other days they are not as urgent and frequent. Feels the stools may be r/t his diet. Eats a lot of cheese which he finds helpful in stool consistency and uses a lot of immodium. ROS Const Constitutional: No anorexia, fatigue, fever(s), weight change or sleep problems Eyes Eyes: No change in vision ENT ENT: No abnormal hearing, difficulty swallowing, mouth lesions, tongue swelling or throat swelling Resp Respiratory: No cough or shortness of breath Cardio Cardiology: No chest pain at rest, chest pain with exertion, shortness of breath or dyspnea on exertion Gastro GI: No difficulty swallowing Genitourinary Male: No difficulty urinating or burning urination Musc Musculoskeletal: No joint pain, joint swelling, muscle weakness or decreased muscle mass Skin Skin: No hair loss in leg, yellowing of the eye, itchy eyes, rash, skin ulcer or skin swelling Neuro Neurology: No abnormal hearing, abnormal movements, confusion, unsteady gait/balance or memory loss Psych Psychiatric: No anxiety, No confusion and No memory loss Endo Endocrine: No fatigue or weight change Aller/Imm Allergy/Immunologic: No itchy eyes, throat swelling or tongue swelling Jerry/Lymp Hematologic/Lymphatic: No easy bleeding, easy bruising or enlarged lymph nodes Exam Const General: cooperative and comfortable Nutritional Appearance: average body habitus and well nourished [facility] Head: normal to inspection Ears: hearing grossly normal bilaterally Nose: external nose normal Face and sinus: normal facial exam Mouth: oral mucosae normal Throat: posterior oropharynx normal Eyes General: appearance normal, both eyes and all related structures Neck Neck: normal visual inspection Chest Chest palpation & inspection: normal inspection of the chest and normal palpation of entire chest wall Resp Effort & Inspection: normal respiratory effort Auscultation: Bilateral: Clear to Auscultation Cardio Palpation: normal PMI Rate: regular rate Rhythm: regular rhythm GI Inspection: normal to inspection Auscultation: normal bowel sounds Percussion: normal to percussion Palpation: no hepatosplenomegaly Skin General: no rashes or lesions noted Neuro General: patient alert Extrem General: normal to inspection Psych Affect: normal affect Quality Reporting Tobacco Screening ([facility] 138) Smoking Status: Former smoker Assessment and Plan Assessment and Plan (1) Diarrhea: ?Status:?Chronic ?Plan: Differential diagnosis for his diarrhea does include bile acid diarrhea after undergoing surgical resection.? I do not think he has any problems with short gut syndrome as it is mostly when he eats.? 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 He will undergo an colonoscopy to evaluate his lower GI tract.? He was explained alternatives, risk, benefits including outstanding bleeding, infection, sepsis, perforation, need for discharge and .? He will be an ASA of 3.? We will also put him on colestipol 1 g p.o. twice daily. ? ? ? Medications: New colestipol 1 g PO BID 60 tabs 2RF ? ? I have examined the patient and the H&P has been reviewed. There are no clinical changes since date of exam.
[2023-01-11] MEDS: Lactated Ringers 1,000 ML 15 ML IV (10:17)
[2023-01-11 10:18] VITALS: BP 154/95; PULSE 69; RESP 19; TEMP 36.5; O2SAT 95; BMI 40.1
[2023-01-11 11:55] VITALS: BP 108/71; BP 154/95; PULSE 79; RESP 16; TEMP 36.7; O2SAT 93
--- NOTE | 2023-01-11 11:58 | OP.COLON_ITS ---
Patient Name: Lobo Luo Procedure Date: 01/11/2023 11:25 AM Date of : 1945 Age: 78 Procedure: Colonoscopy Indications: Clinically significant diarrhea of unexplained origin, Follow-up for history of adenomatous polyps in the colon Providers: Glenn Mckinney DO Referring MD: Glenn Mckinney DO Medicines: Monitored Anesthesia Care Patient Profile: This is a 78 year old male. Refer to note in patient chart for documentation of history and physical. Last Colonoscopy: within the past 3 years. Complications: No immediate complications. Procedure: Pre-Anesthesia Assessment: - Prior to the procedure, a History and Physical was performed, and patient medications and allergies were reviewed. The patient is competent. The risks and benefits of the procedure and the sedation options and risks were discussed with the patient. All questions were answered and informed consent was obtained. Patient identification and proposed procedure were verified by the physician in the pre-procedure area. Mental Status Examination: normal. Prophylactic Antibiotics: The patient does not require prophylactic antibiotics. Prior Anticoagulants: The patient has taken no previous anticoagulant or antiplatelet agents. ASA Grade Assessment: II - A patient with mild systemic disease. After reviewing the risks and benefits, the patient was deemed in satisfactory condition to undergo the procedure. The anesthesia plan was to use monitored anesthesia care (MAC). Immediately prior to administration of medications, the patient was re-assessed for adequacy to receive sedatives. The heart rate, respiratory rate, oxygen saturations, blood pressure, adequacy of pulmonary ventilation, and response to care were monitored throughout the procedure. The physical status of the patient was re-assessed after the procedure. After I obtained informed consent, the scope was passed under direct vision. Throughout the procedure, the patient's blood pressure, pulse, and oxygen saturations were monitored continuously. The Colonoscope was introduced through the anus and advanced to the cecum, identified by appendiceal orifice and ileocecal valve. The colonoscopy was performed without difficulty. The patient tolerated the procedure well. The quality of the bowel preparation was adequate. Scope In: 11:31:42 AM Scope Withdrawal Time 0 hours 14 minutes 10 seconds Scope Out: 11:50:56 AM Total Procedure Duration Time 0 hours 19 minutes 14 seconds Findings: The perianal and digital rectal examinations were normal. Multiple small and large-mouthed diverticula were found in the sigmoid colon, descending colon, splenic flexure and transverse colon. Non-bleeding internal hemorrhoids were found during retroflexion. The hemorrhoids were Grade I (internal hemorrhoids that do not prolapse). A 5 mm polyp was found in the hepatic flexure. The polyp was sessile. The polyp was removed with a hot snare. Resection and retrieval were complete. Verification of patient identification for the specimen was done. Estimated blood loss was minimal. Impression: - Diverticulosis in the sigmoid colon, in the descending colon, at the splenic flexure and in the transverse colon. - Non-bleeding internal hemorrhoids. - One 5 mm polyp at the hepatic flexure, removed with a hot snare. Resected and retrieved. Recommendation: - Repeat colonoscopy in 3 years for surveillance. - Continue present medications. Procedure Code(s): --- Professional --- 66772, Colonoscopy, flexible; with removal of tumor(s), polyp(s), or other lesion(s) by snare technique CPT copyright 2017 [employer]. All rights reserved. The codes documented in this report are preliminary and upon professional fee coder review may be revised to meet current compliance requirements. Glenn Mckinney DO 01/11/2023 11:57:40 AM This report has been signed electronically. Number of Addenda: 0 Note Initiated On: 01/11/2023 11:25 AM
--- NOTE | 2023-01-11 11:58 | OP.CCLET_ITS ---
01/11/2023 Joyce Vallejo [facility] [address] [place] [address] Re : Colonoscopy procedure for Lobo Luo Dear Dr. Vallejo This procedure was performed on January. My impressions and recommendations are as follows: Impressions : - Diverticulosis in the sigmoid colon, in the descending colon, at the splenic flexure and in the transverse colon. - Non-bleeding internal hemorrhoids. - One 5 mm polyp at the hepatic flexure, removed with a hot snare. Resected and retrieved. Recommendations : - Repeat colonoscopy in 3 years for surveillance. - Continue present medications. My findings are described in the full procedure note, which is enclosed. If I can be of further assistance, please feel free to contact me at . Sincerely, Glenn Mckinney, 01/11/2023 11:57:40 AM This report has been signed electronically.
[2023-01-11 12:00] VITALS: BP 100/68; BP 154/95; PULSE 76; RESP 18; O2SAT 93
[2023-01-11 12:05] VITALS: BP 114/76; BP 154/95; PULSE 70; RESP 18; O2SAT 94
[2023-01-11 12:10] VITALS: BP 119/81; BP 154/95; PULSE 69; RESP 18; TEMP 36.1; O2SAT 94
[2023-01-11 12:22] VITALS: BP 154/95
== END 2023-01-11 12:28 | disposition home or self-care (01) ==
LOC: EN 09:34 → AC 09:36
PROVIDERS: PCP Internal Medicine; Referring Provider Internal Medicine Gastroenterology; Visit Provider Internal Medicine Gastroenterology
PROC: 0DJD8ZZ Inspection of Lower Intestinal Tract, Via Natural or Artificial Opening Endoscopic (ICD-10-PCS; CPT 45378; principal; 2023-01-11 11:25)
DX: D12.3 Benign neoplasm of transverse colon (principal); K64.0 First degree hemorrhoids; Z87.891 Personal history of nicotine dependence; K57.30 Diverticulosis of large intestine without perforation or abscess without bleeding; Z86.010 Personal history of colon polyps; E78.00 Pure hypercholesterolemia, unspecified; R06.82 Tachypnea, not elsewhere classified
CPT/HCPCS: 45385; 88305; J7120; J2405

== ENCOUNTER → 2023-11-05 | Outpatient (CLI) | payer MEDICARE, SELFPAY ==
[2023-11-05 15:13] LABS: Absolute Lymphocyte Count 2.21 X10^3/uL (0.83-4.51); Absolute Neutrophil Count 3.9 X10^3/uL (2.0-7.7); Basophil# 0.07 X10^3/uL; Eosinophil# 0.05 X10^3/uL; Eosinophils% 0.7 % (0-5); Hematocrit 48.2 % (40-54); Hemoglobin 16.1 g/dL (13.0-16.5); Lymphocyte # 2.21 X10^3/ul (0.83-4.51); Lymphocyte % 31.6 % (19-41); Mean Corp Hgb Conc 33.4 g/dL (32-36); Mean Corpuscular Hgb 32.9 pg (27.0-32.0); Mean Corpuscular Volume 98.6 fL (80-94); Mean Platelet Vol. 10.7 fl (6.2-12.0); Monocyte# 0.61 X10^3/uL; Monocyte% 8.7 % (0-10); NRBC Flagged by Analyzer 0 % (0-5); Neutrophil # 3.94 X10^3/uL (2.7-7.7); Neutrophil % 56.3 % (47-70); Platelet Count 222 K/mm3 (150-450); RBC Distribution Width CV 13.6 % (11.6-14.6); RBC Distribution Width SD 49.2 fl (35.1-43.9); Red Blood Count 4.89 M/mm3 (4.6-6.2)
[2023-11-05 15:55] LABS: ALB/GLOB Ratio 0.9 RATIO (0.9-2.4); AST(SGOT) 24 U/L (15-37); Alanine Aminotransfer ALT/SGPT 34 U/L (16-61); Albumin, Serum 3.6 g/dL (3.2-5.0); Alkaline Phosphatase 76 U/L (45-117); Anion Gap 6 (5-15); BUN 25 mg/dL (7-18); BUN/Creat Ratio 20.2 RATIO (10-20); Chloride 105 mmol/L (98-107); Cholesterol 166 mg/dL (200); Creatinine, Serum 1.24 mg/dL (0.70-1.30); EST Glomerular Filtration Rate 60 mL/min (>60); Est Glom Filt Rate - Afr Amer 73 mL/min (>60); Globulin 4.1 g/dL (2.2-4.2); Glucose 164 mg/dL (74-106); High Density Lipoprotein 36 mg/dL; Protein, Total 7.7 g/dL (6.4-8.2); Sodium Level 139 mmol/L (136-145); Triglycerides 263 mg/dL; Very Low Density Lipoprotein 53 mg/dL (5-40)
== END | disposition home or self-care (01) ==
LOC: LAB 13:19
PROVIDERS: PCP Family Medicine; Referring Provider Family Medicine; Visit Provider Family Medicine
DX: E78.00 Pure hypercholesterolemia, unspecified (principal); Z12.5 Encounter for screening for malignant neoplasm of prostate
CPT/HCPCS: 36415; 80053; 80061; 84153; 85025; G0103